=== PATIENT | male | born 1995 | race American Indian/Alaskan Native ===

== ENCOUNTER 2017-06-13 19:27 | Emergency (ER) | payer SELFPAY ==
[2017-06-14] MEDS ORDERED: MOTRIN PO ONE (00:27)
[2017-06-14] MEDS ORDERED: NORCO 5/325 PO ONE (00:27)
--- NOTE | 2017-06-14 00:32 | Emergency Department Report ---
ED ENT HPI - General Chief complaint: Dental/Oral Stated complaint: JAW PAIN Time Seen by Provider: 06/13/17 23:05 Source: patient Mode of arrival: Ambulatory Limitations: No Limitations - History of Present Illness Initial comments: 22-year-old male past medical history none presents with complaint of 2 days of right upper toothache. Patient denies any pus or blood drainage from mouth. Speaking in full sentences. No audible wheezing or stridor no visible trismus or drooling. Patient is able to swallow fluid and food without difficulty. States that it is in the back of his upper row of teeth on right side. Denies any recent trauma to face. Denies any fevers chills earache sore throat nausea or vomiting. Denies any recent dental work. MD complaint: tooth pain Onset/Timin -: days(s) Location: tooth # 1 - Pain and swelling here Severity: moderate Severity scale (0 -10): 5 Quality: aching Consistency: intermittent Associated Symptoms: gum swelling, toothache - Related Data Previous Rx's Medication Instructions Recorded Last Taken Type Famotidine [Pepcid] 20 mg PO BID #20 tablet 03/29/14 Unknown Rx Promethazine [Phenergan] 25 mg PO Q6H PRN #20 tablet 03/29/14 Unknown Rx Brompheniramine/Pseudoephed/Dm 10 ml PO Q12HR #120 ml 04/04/15 Unknown Rx [Bromfed Dm Cough Syrup] Ibuprofen [Motrin 800 MG tab] 800 mg PO Q8HR PRN #30 tablet 04/04/15 Unknown Rx Acetaminophen/Codeine [Tylenol 1 tab PO Q6H PRN #10 tab 06/14/17 Unknown Rx /Codeine # 3 tab] Amoxicillin/Potassium Clav 1 each PO BID #20 tablet 06/14/17 Unknown Rx [Augmentin 875-125 Tablet] Benzocaine [Orajel Liquid 20%] 1 ml MM Q6HR PRN #1 bottle 06/14/17 Unknown Rx Chlorhexidine Mouthwash [Peridex] 15 ml MM BID PRN #1 bottle 06/14/17 Unknown Rx Ibuprofen [Motrin] 600 mg PO Q8H PRN #20 tablet 06/14/17 Unknown Rx Allergies Allergy/AdvReac Type Severity Reaction Status Date / Time No Known Allergies Allergy Unverified 03/29/14 09:01 ED Dental HPI - General Chief complaint: Dental/Oral Stated complaint: JAW PAIN Time Seen by Provider: 06/13/17 23:05 Source: patient Mode of arrival: Ambulatory Limitations: No Limitations - Related Data Previous Rx's Medication Instructions Recorded Last Taken Type Famotidine [Pepcid] 20 mg PO BID #20 tablet 03/29/14 Unknown Rx Promethazine [Phenergan] 25 mg PO Q6H PRN #20 tablet 03/29/14 Unknown Rx Brompheniramine/Pseudoephed/Dm 10 ml PO Q12HR #120 ml 04/04/15 Unknown Rx [Bromfed Dm Cough Syrup] Ibuprofen [Motrin 800 MG tab] 800 mg PO Q8HR PRN #30 tablet 04/04/15 Unknown Rx Acetaminophen/Codeine [Tylenol 1 tab PO Q6H PRN #10 tab 06/14/17 Unknown Rx /Codeine # 3 tab] Amoxicillin/Potassium Clav 1 each PO BID #20 tablet 06/14/17 Unknown Rx [Augmentin 875-125 Tablet] Benzocaine [Orajel Liquid 20%] 1 ml MM Q6HR PRN #1 bottle 06/14/17 Unknown Rx Chlorhexidine Mouthwash [Peridex] 15 ml MM BID PRN #1 bottle 06/14/17 Unknown Rx Ibuprofen [Motrin] 600 mg PO Q8H PRN #20 tablet 06/14/17 Unknown Rx Allergies Allergy/AdvReac Type Severity Reaction Status Date / Time No Known Allergies Allergy Unverified 03/29/14 09:01 ED Review of Systems ROS: Stated complaint: JAW PAIN Other details as noted in HPI Constitutional: denies: chills, fever Eyes: denies: eye pain, eye discharge, vision change ENT: dental pain. denies: ear pain, throat pain Respiratory: denies: cough, shortness of breath, wheezing Cardiovascular: denies: chest pain, palpitations Endocrine: no symptoms reported Gastrointestinal: denies: abdominal pain, nausea, diarrhea Genitourinary: denies: urgency, dysuria Musculoskeletal: denies: back pain, joint swelling, arthralgia Skin: denies: rash, lesions Neurological: denies: headache, weakness, paresthesias Psychiatric: denies: anxiety, depression Hematological/Lymphatic: denies: easy bleeding, easy bruising ED Past Medical Hx - Past Medical History Previous Medical History?: No - Surgical History Past Surgical History?: No - Social History Smoking Status: Never Smoker Substance Use Type: None - Medications Home Medications: Home Medications Medication Instructions Recorded Confirmed Last Taken Type Famotidine [Pepcid] 20 mg PO BID #20 tablet 03/29/14 Unknown Rx Promethazine [Phenergan] 25 mg PO Q6H PRN #20 tablet 03/29/14 Unknown Rx Brompheniramine/Pseudoephed/Dm 10 ml PO Q12HR #120 ml 04/04/15 Unknown Rx [Bromfed Dm Cough Syrup] Ibuprofen [Motrin 800 MG tab] 800 mg PO Q8HR PRN #30 tablet 04/04/15 Unknown Rx Acetaminophen/Codeine [Tylenol 1 tab PO Q6H PRN #10 tab 06/14/17 Unknown Rx /Codeine # 3 tab] Amoxicillin/Potassium Clav 1 each PO BID #20 tablet 06/14/17 Unknown Rx [Augmentin 875-125 Tablet] Benzocaine [Orajel Liquid 20%] 1 ml MM Q6HR PRN #1 bottle 06/14/17 Unknown Rx Chlorhexidine Mouthwash [Peridex] 15 ml MM BID PRN #1 bottle 06/14/17 Unknown Rx Ibuprofen [Motrin] 600 mg PO Q8H PRN #20 tablet 06/14/17 Unknown Rx ED Physical Exam - General Limitations: No Limitations General appearance: alert, in no apparent distress - Head Head exam: Present: atraumatic, normocephalic - Eye Eye exam: Present: normal appearance, PERRL, EOMI - ENT ENT exam: Present: mucous membranes moist - Expanded ENT Exam Expanded Teeth exam: Present: dental tenderness #, gingival enlargement 1 - Dental Tenderness (swelling adjacent to last rear molar) Throat exam: Positive: normal inspection (oropharynx is patent no [employer] no tonsillar exudates no visible abscess) - Neck Neck exam: Present: normal inspection, full ROM - Respiratory Respiratory exam: Present: normal lung sounds bilaterally. Absent: respiratory distress - Cardiovascular Cardiovascular Exam: Present: regular rate, normal rhythm. Absent: systolic murmur, diastolic murmur, rubs, gallop - GI/Abdominal GI/Abdominal exam: Present: soft, normal bowel sounds - Rectal Rectal exam: Present: deferred - Extremities Exam Extremities exam: Present: normal inspection - Back Exam Back exam: Present: normal inspection - Neurological Exam Neurological exam: Present: alert, oriented X3 - Psychiatric Psychiatric exam: Present: normal affect, normal mood - Skin Skin exam: Present: warm, dry, intact, normal color. Absent: rash ED Course Vital Signs 06/13/17 21:02 Temperature 98 F Pulse Rate 73 Blood Pressure 109/69 O2 Sat by Pulse 100 Oximetry ED Medical Decision Making - Medical Decision Making A/P: dental cavities, toothache, dental abscess 1- Motrin when necessary, amoxicillin ten-day course, Orajel when necessary, Peridex mouthwash daily basis, short course codeine when necessary 2- I provided patient with information for multiple dental clinics to follow up and stressed the importance of dental follow-up as he has multiple cavities that require dental fixation or instrumentation 3- no clinical signs of facial abscess, no Juan's angina, no induration or cellulitis of floor of mouth or tongue 4- patient able to tolerate by mouth before discharge 5- no signs of facial infection. Advised patient that if he does not take antibiotics with follow-up with a dentist as soon as possible that a can result in potentially serious or dangerous infection to develop in jaw or face. Patient states that he understood these instructions. I advised patient to return to the ED for any persistent unrelenting nausea or vomiting fever or chills or headaches. Critical care attestation.: If time is entered above; I have spent that time in minutes in the direct care of this critically ill patient, excluding procedure time. ED Disposition Clinical Impression: Dental abscess, Toothache Disposition: TO HOME OR SELFCARE Is pt being admited?: No Does the pt Need Aspirin: No Condition: Stable Instructions: Dental Abscess (ED), Toothache (ED) Additional Instructions: [email or web address] Prescriptions: Acetaminophen/Codeine [Tylenol /Codeine # 3 tab] 1 tab PO Q6H PRN #10 tab PRN Reason: Pain Amoxicillin/Potassium Clav [Augmentin 875-125 Tablet] 1 each PO BID #20 tablet Benzocaine [Orajel Liquid 20%] 1 ml MM Q6HR PRN #1 bottle PRN Reason: Toothache Chlorhexidine Mouthwash [Peridex] 15 ml MM BID PRN #1 bottle PRN Reason: Toothache Ibuprofen [Motrin] 600 mg PO Q8H PRN #20 tablet PRN Reason: Toothache Referrals: [facility] [Outside] - 3-5 Days Forms: Accompanied Note, Work/School Release Form(ED) Time of Disposition: 00:30
[2017-06-14] MEDS ORDERED: AUGMENTIN 875 MG PO ONE (00:36)
[2017-06-14 00:43] VITALS: BP 102/62
== END 2017-06-14 01:09 | disposition home or self-care (01) ==
LOC: ED 19:27
DX: K04.7 Periapical abscess without sinus (principal)
CPT/HCPCS: 99282

== ENCOUNTER 2018-02-25 08:55 | Emergency (ER) | payer SELFPAY ==
[2018-02-25] MEDS ORDERED: TORADOL IV ONE (10:13)
--- NOTE | 2018-02-25 10:19 | Emergency Department Report ---
HPI - General Chief Complaint: Nausea/Vomiting/Diarrhea Time Seen by Provider: 02/25/18 10:07 - HPI HPI: Room 3 The patient is a 22-year-old male presenting with a chief complaint of chest pain. The patient states this morning at 07:00, left-sided chest pain described as sharp in nature. The patient states he felt shortness of breath with the chest pain had to sit down. Patient states the pain has been intermittent and then became heavy. Patient is to nausea but denies vomiting. Patient denies diaphoresis, fever or cough. The patient admits to pleurisy. The patient currently gets his pain a score of 5/10 Location: Left chest Duration: Intermittently times one day Quality: Sharp, heavy Severity: 5/10 Modifying factors: [see above] Context: [see above] Mode of transportation: The patient drove himself to the emergency department and there are no visitors present ED Past Medical Hx - Past Medical History Previous Medical History?: No - Surgical History Past Surgical History?: No - Family History Family history: no significant - Social History Smoking Status: Never Smoker Substance Use Type: None (denies illicit drug use), Alcohol (occasional) - Medications Home Medications: Home Medications Medication Instructions Recorded Confirmed Last Taken Type Famotidine [Pepcid] 20 mg PO BID #20 tablet 03/29/14 Unknown Rx Promethazine [Phenergan] 25 mg PO Q6H PRN #20 tablet 03/29/14 Unknown Rx Brompheniramine/Pseudoephed/Dm 10 ml PO Q12HR #120 ml 04/04/15 Unknown Rx [Bromfed Dm Cough Syrup] Ibuprofen [Motrin 800 MG tab] 800 mg PO Q8HR PRN #30 tablet 04/04/15 Unknown Rx Acetaminophen/Codeine [Tylenol 1 tab PO Q6H PRN #10 tab 06/14/17 Unknown Rx /Codeine # 3 tab] Amoxicillin/Potassium Clav 1 each PO BID #20 tablet 06/14/17 Unknown Rx [Augmentin 875-125 Tablet] Benzocaine [Orajel Liquid 20%] 1 ml MM Q6HR PRN #1 bottle 06/14/17 Unknown Rx Chlorhexidine Mouthwash [Peridex] 15 ml MM BID PRN #1 bottle 06/14/17 Unknown Rx Ibuprofen [Motrin] 600 mg PO Q8H PRN #20 tablet 06/14/17 Unknown Rx Sulfamethoxazole/Trimethoprim 1 each PO BID #14 tablet 11/30/17 Unknown Rx [Bactrim DS TAB] Ibuprofen [Motrin 800 MG tab] 800 mg PO Q8HR PRN #20 tablet 02/25/18 Unknown Rx traMADol [Ultram] 50 mg PO Q6HR PRN #10 tablet 02/25/18 Unknown Rx ED Review of Systems ROS: Stated complaint: CHEST PAIN/SOB Other details as noted in HPI Constitutional: denies: diaphoresis, fever Eyes: denies: eye pain ENT: denies: throat pain Respiratory: shortness of breath Cardiovascular: chest pain Endocrine: no symptoms reported Gastrointestinal: nausea. denies: vomiting Genitourinary: denies: dysuria Musculoskeletal: denies: back pain Neurological: denies: headache Physical Exam - Physical Exam Vital Signs: Vital Signs 02/25/18 09:16 Temperature 97.4 F L Pulse Rate 65 Respiratory 18 Rate Blood Pressure 126/66 O2 Sat by Pulse 100 Oximetry Physical Exam: GENERAL: The patient is well-developed well-nourished male lying on stretcher using her cell phone appear to be in acute distress. [] HEENT: Normocephalic. Atraumatic. Extraocular motions are intact. Patient has moist mucous membranes. NECK: Supple. Trachea midline CHEST/LUNGS: Clear to auscultation. There is no respiratory distress noted. HEART/CARDIOVASCULAR: Regular. There is no tachycardia. There is no gallop rub or murmur. ABDOMEN: Abdomen is soft, nontender. Patient has normal bowel sounds. There is no abdominal distention. SKIN: There is no rash. There is no edema. There is no diaphoresis. NEURO: The patient is awake, alert, and oriented. The patient is cooperative. The patient has normal speech MUSCULOSKELETAL: There is no evidence of acute injury. ED Course Vital Signs 02/25/18 09:16 Temperature 97.4 F L Pulse Rate 65 Respiratory 18 Rate Blood Pressure 126/66 O2 Sat by Pulse 100 Oximetry - Reevaluation(s) Reevaluation #1: 02/25/18 11:45 Patient is sleeping comfortably. Patient awakened and results discussed. Strong warnings given - Consultations Consultation #1: 02/25/18 10:23 EKG sent to and discussed with Dr. Blood- early repolarization. ED Medical Decision Making - Lab Data Result diagrams: 02/25/18 10:17 02/25/18 10:17 Laboratory Tests 02/25/18 02/25/18 02/25/18 10:17 10:17 10:17 WBC 5.9 RBC 4.84 Hgb 14.4 Hct 42.4 MCV 88 MCH 30 MCHC 34 RDW 13.2 Plt Count 305 Lymph % (Auto) 32.0 [place] % (Auto) 8.1 H Eos % (Auto) 8.7 H Baso % (Auto) 0.4 Lymph # 1.9 [place] # 0.5 Eos # 0.5 H Baso # 0.0 Seg Neutrophils % 50.8 Seg Neutrophils # 3.0 D-Dimer < 135 Sodium 143 Potassium 4.1 Chloride 104.6 Carbon Dioxide 29 Anion Gap 14 BUN 10 Creatinine 0.9 Estimated GFR > 60 BUN/Creatinine Ratio 11 Glucose 75 Calcium 9.0 Total Creatine Kinase 114 CK-MB (CK-2) 1.7 CK-MB (CK-2) Rel Index 1.4 Troponin T < 0.010 NT-Pro-B Natriuret Pep 27.69 - EKG Data -: EKG Interpreted by Me EKG shows normal: sinus rhythm Rate: normal - EKG Data When compared to previous EKG there are: previous EKG unavailable Interpretation: nonspecific ST-T wave geovany - Radiology Data Radiology results: report reviewed (chest x-ray), image reviewed (chest x-ray) interpreted by me: Chest x-ray-no focal infiltrate, no pneumothorax Findings [facility] [address] [place] [address] XRay Report Signed Patient: PETRA BURCH MR#: [id number] : 1995 Acct:[id number] Age/Sex: 22 / M ADM Date: 02/25/18 Loc: ED Attending Dr: Ordering Physician: PASCALE MONTANA MD Date of Service: 02/25/18 Procedure(s): XR chest routine 2V Accession Number(s): [id number] cc: PASCALE MONTANA MD Fluoro Time In Minutes: ROUTINE CHEST, TWO VIEWS: HISTORY: chest pain. The trachea, heart, mediastinal contour, lung qiu and bony thorax are unremarkable. IMPRESSION: Unremarkable chest x-ray. Transcribed By: TTR Dictated By: GEORGI CUIREL JR, MD Electronically Authenticated By: GEORGI CURIEL JR, MD Signed Date/Time: 02/25/18 1132 DD/ 1131 TD/TT: 02/25/181131 - Differential Diagnosis PE, ACS, pleurisy, pericarditis, GERD, anxiety Critical care attestation.: If time is entered above; I have spent that time in minutes in the direct care of this critically ill patient, excluding procedure time. ED Disposition Clinical Impression: Atypical chest pain Disposition: - TO HOME OR SELFCARE Is pt being admited?: No Does the pt Need Aspirin: No Condition: Stable Instructions: Chest Pain (ED), Costochondritis (ED) Additional Instructions: Return to the emergency department immediately should you develop worsening symptoms, fever, inability to tolerate food or liquid or any other concerns. Prescriptions: Ibuprofen [Motrin 800 MG tab] 800 mg PO Q8HR PRN #20 tablet PRN Reason: Pain, Moderate (4-6) traMADol [Ultram] 50 mg PO Q6HR PRN #10 tablet PRN Reason: Pain Referrals: PRIMARY CARE, [Primary Care Provider] - 3-5 Days [facility] [Outside] - 3-5 Days Time of Disposition: 11:45
[2018-02-25 10:32] LABS: Basophils % (Auto) 0.4 % (0.0-1.8); Eosinophils # (Auto) 0.5 K/mm3 (0.0-0.4); Eosinophils % (Auto) 8.7 % (0.0-4.3); Hematocrit 42.4 % (35.5-45.6); Hemoglobin 14.4 gm/dl (11.8-15.2); Lymphocytes # (Auto) 1.9 K/mm3 (1.2-5.4); Mean Corpuscular HGB Conc 34 % (32-34); Mean Corpuscular Volume 88 fl (84-94); Monocytes # (Auto) 0.5 K/mm3 (0.0-0.8); Monocytes % (Auto) 8.1 % (0.0-7.3); Platelet Count 305 K/mm3 (140-440); Red Blood Count 4.84 M/mm3 (3.65-5.03); Red Cell Distribution Width 13.2 % (13.2-15.2)
[2018-02-25 10:57] LABS: Creatine Kinase MB 1.7 ng/mL (0.0-4.0)
[2018-02-25 10:58] LABS: BUN/Creatinine Ratio 11; Blood Urea Nitrogen 10 mg/dL (9-20); Hemolysis Index 8
--- NOTE | 2018-02-25 11:35 | XRay Report ---
ROUTINE CHEST, TWO VIEWS: HISTORY: chest pain. The trachea, heart, mediastinal contour, lung qiu and bony thorax are unremarkable. IMPRESSION: Unremarkable chest x-ray.
[2018-02-25 12:03] VITALS: BP 106/68
== END 2018-02-25 12:05 | disposition home or self-care (01) ==
LOC: ED 08:55
DX: R07.89 Other chest pain (principal)
CPT/HCPCS: 36415; 71046; 80048; 82550; 82553; 83880; 84484; 85025; 85379; 93005; 93010; 96374; 99284; J1885

== ENCOUNTER 2018-05-14 09:51 | Emergency (ER) | payer SELFPAY ==
--- NOTE | 2018-05-14 10:42 | Emergency Department Report ---
Minor Respiratory - HPI Stated Complaint: HEADACHE/SORE THROAT/PAIN Time Seen by Provider: 05/14/18 10:36 Duration: 5 Days Pain Location: Throat Severity: moderate Minor Respiratory: Yes Sore Throat, Yes Able to Tolerate Fluids, Yes Cough (productive of clear phlegm), No Rhinorrhea, No Ear Pain, No Sick Contacts, No Hemoptysis, No Chest Pain, No Shortness of Breath, No Fever ED Review of Systems ROS: Stated complaint: HEADACHE/SORE THROAT/PAIN Other details as noted in HPI Comment: All other systems reviewed and negative ED Past Medical Hx - Past Medical History Previous Medical History?: No - Surgical History Past Surgical History?: No - Social History Smoking Status: Current Some Day Smoker Substance Use Type: None - Medications Home Medications: Home Medications Medication Instructions Recorded Confirmed Last Taken Type Famotidine [Pepcid] 20 mg PO BID #20 tablet 03/29/14 Unknown Rx Promethazine [Phenergan] 25 mg PO Q6H PRN #20 tablet 03/29/14 Unknown Rx Brompheniramine/Pseudoephed/Dm 10 ml PO Q12HR #120 ml 04/04/15 Unknown Rx [Bromfed Dm Cough Syrup] Ibuprofen [Motrin 800 MG tab] 800 mg PO Q8HR PRN #30 tablet 04/04/15 Unknown Rx Acetaminophen/Codeine [Tylenol 1 tab PO Q6H PRN #10 tab 06/14/17 Unknown Rx /Codeine # 3 tab] Amoxicillin/Potassium Clav 1 each PO BID #20 tablet 06/14/17 Unknown Rx [Augmentin 875-125 Tablet] Benzocaine [Orajel Liquid 20%] 1 ml MM Q6HR PRN #1 bottle 06/14/17 Unknown Rx Chlorhexidine Mouthwash [Peridex] 15 ml MM BID PRN #1 bottle 06/14/17 Unknown Rx Ibuprofen [Motrin] 600 mg PO Q8H PRN #20 tablet 06/14/17 Unknown Rx Sulfamethoxazole/Trimethoprim 1 each PO BID #14 tablet 11/30/17 Unknown Rx [Bactrim DS TAB] Ibuprofen [Motrin 800 MG tab] 800 mg PO Q8HR PRN #20 tablet 02/25/18 Unknown Rx traMADol [Ultram] 50 mg PO Q6HR PRN #10 tablet 02/25/18 Unknown Rx Azithromycin [Zithromax Z-GRAYSON] 250 mg PO DAILY #6 tablet 05/14/18 Unknown Rx Ibuprofen [Ibu] 600 mg PO Q6HR PRN #20 tablet 05/14/18 Unknown Rx guaiFENesin/CODEINE [Robitussin AC] 5 ml PO Q6HR PRN #100 oral.liqd 05/14/18 Unknown Rx predniSONE [Deltasone] 20 mg PO QDAY #5 tab 05/14/18 Unknown Rx Minor Respiratory Exam - Exam General: Vital signs noted. No distress. Alert and acting appropriately. HEENT: Yes Pharyngeal Erythema, Yes Moist Mucous Membranes, No Pharyngeal Exudates, No Rhinorrhea, No Conjuctival Injection, No Frontal Tenderness, No Maxillary Tenderness Ear: Neither TM Bulge, Neither TM Erythema, Neither EAC Pain, Neither EAC Discharge Neck: Yes Supple, No Adenopathy Lungs: Yes Good Air Exchange, No Wheezes, No Ronchi, No Stridor, No Cough, No Labored Respirations, No Retractions, No Use of Accessory Muscles, No Other Abnormal Lung Sounds Heart: Yes Regular, No Murmur Abdomen: Yes Normal Bowel Sounds, No Tenderness, No Peritoneal Signs Skin: No Rash, No Edema Neurologic: Alert and oriented, no deficits. Musculoskeletal: Unremarkable. ED Course Vital Signs 05/14/18 10:02 Temperature 97.4 F L Pulse Rate 79 Blood Pressure 103/64 Critical care attestation.: If time is entered above; I have spent that time in minutes in the direct care of this critically ill patient, excluding procedure time. ED Disposition Clinical Impression: Pharyngitis Qualifiers: Pharyngitis/tonsillitis etiology: unspecified etiology Qualified Code(s): J02.9 - Acute pharyngitis, unspecified Disposition: DC-01 TO HOME OR SELFCARE Is pt being admited?: No Does the pt Need Aspirin: No Condition: Stable Instructions: Pharyngitis (ED) Time of Disposition: 10:41
== END 2018-05-14 11:11 | disposition home or self-care (01) ==
LOC: ED 09:51
CPT/HCPCS: 99282

== ENCOUNTER 2018-09-22 14:52 | Emergency (ER) | payer SELFPAY ==
[2018-09-22 15:26] VITALS: BP 94/54
--- NOTE | 2018-09-22 15:26 | Event Note ---
ED Screening Note Date of service: 09/22/18 Time: 15:24 ED Screening Note: 23 y/o male comes in for dysuria and hematuria since last night. Denies any penile discharge. No testicular pain. This initial assessment/diagnostic orders/clinical plan/treatment(s) is/are subject to change based on patients health status, clinical progression and re- assessment by fellow clinical providers in the ED. Further treatment and workup at subsequent clinical providers discretion. Patient/guardian urged not to elope from the ED as their condition may be serious if not clinically assessed and managed. Initial orders include:
[2018-09-22 16:01] LABS: Bilirubin,Urine NEG (Negative); Blood,Urine NEG (Negative); Color,Urine Yellow (Yellow); Mucus,Urine 1+ /HPF; Protein,Urine <15 mg/dL mg/dL (Negative); Urobilinogen,Urine < 2.0 mg/dL (<2.0)
[2018-09-22] MEDS ORDERED: FLAGYL PO ONE (16:33)
[2018-09-22] MEDS ORDERED: ZITHROMAX PO ONE (16:34)
[2018-09-22] MEDS ORDERED: XYLOCAINE 1% MPF 5 mL INFILTRATI ONE (16:34)
[2018-09-22] MEDS ORDERED: ROCEPHIN IM ONE (16:34)
[2018-09-22] MEDS ORDERED: ZOFRAN ODT PO ONE (16:36)
--- NOTE | 2018-09-22 16:37 | Emergency Department Report ---
ED Dysuria HPI - HPI Chief Complaint: Urogenital-Male Stated Complaint: URIATING BLOOD Time Seen by Provider: 09/22/18 15:23 Location of Discomfort: Urethra (dysuria) Severity: Moderate Symptoms: Dysuria: Yes, Frequency: No, Suprapubic Pain: No, Flank Pain: No, Fever: No, Hematuria: Yes, Abdominal Pain: No, Previous UTI's: No Other History: 23 YO COMES TO ER WITH HEMATURIA AND DYSURIA. RECENTLY TOLD HE HAD STI BUT DID NOT TAKE MEDS INSTRUCTED. NO LESIONS. NO TESTICULAR PAIN ED Review of Systems ROS: Stated complaint: URIATING BLOOD Other details as noted in HPI Comment: All other systems reviewed and negative ED Past Medical Hx - Past Medical History Previous Medical History?: Yes Additional medical history: STI - Surgical History Past Surgical History?: No - Family History Family history: no significant - Social History Smoking Status: Never Smoker Substance Use Type: Alcohol - Medications Home Medications: Home Medications Medication Instructions Recorded Confirmed Last Taken Type Famotidine [Pepcid] 20 mg PO BID #20 tablet 03/29/14 Unknown Rx Promethazine [Phenergan] 25 mg PO Q6H PRN #20 tablet 03/29/14 Unknown Rx Brompheniramine/Pseudoephed/Dm 10 ml PO Q12HR #120 ml 04/04/15 Unknown Rx [Bromfed Dm Cough Syrup] Ibuprofen [Motrin 800 MG tab] 800 mg PO Q8HR PRN #30 tablet 04/04/15 Unknown Rx Acetaminophen/Codeine [Tylenol 1 tab PO Q6H PRN #10 tab 06/14/17 Unknown Rx /Codeine # 3 tab] Amoxicillin/Potassium Clav 1 each PO BID #20 tablet 06/14/17 Unknown Rx [Augmentin 875-125 Tablet] Benzocaine [Orajel Liquid 20%] 1 ml MM Q6HR PRN #1 bottle 06/14/17 Unknown Rx Chlorhexidine Mouthwash [Peridex] 15 ml MM BID PRN #1 bottle 06/14/17 Unknown Rx Ibuprofen [Motrin] 600 mg PO Q8H PRN #20 tablet 06/14/17 Unknown Rx Sulfamethoxazole/Trimethoprim 1 each PO BID #14 tablet 11/30/17 Unknown Rx [Bactrim DS TAB] Ibuprofen [Motrin 800 MG tab] 800 mg PO Q8HR PRN #20 tablet 02/25/18 Unknown Rx traMADol [Ultram] 50 mg PO Q6HR PRN #10 tablet 02/25/18 Unknown Rx Azithromycin [Zithromax Z-GRAYSON] 250 mg PO DAILY #6 tablet 05/14/18 Unknown Rx Ibuprofen [Ibu] 600 mg PO Q6HR PRN #20 tablet 05/14/18 Unknown Rx guaiFENesin/CODEINE [Robitussin AC] 5 ml PO Q6HR PRN #100 oral.liqd 05/14/18 Unknown Rx predniSONE [Deltasone] 20 mg PO QDAY #5 tab 05/14/18 Unknown Rx Dysuria Exam - Exam General: Vital signs noted. No distress. Alert and acting appropriately. Exam: Yes Moist Mucous Membranes, No CVA Tenderness, No Abdominal Tenderness, No Rigidity or Guarding Labs: Lab Results 09/22/18 Range/Units 15:30 Urine Color Yellow (Yellow) Urine Turbidity Clear (Clear) Urine pH 7.0 (5.0-7.0) Ur Specific [place] 1.024 (1.003-1.030) Urine Protein <15 mg/dl (Negative) mg/dL Urine Glucose (UA) Neg (Negative) mg/dL Urine Ketones Neg (Negative) mg/dL Urine Blood Neg (Negative) Urine Nitrite Neg (Negative) Urine Bilirubin Neg (Negative) Urine Urobilinogen < 2.0 (<2.0) mg/dL Ur Leukocyte Esterase Neg (Negative) Urine WBC (Auto) 6.0 (0.0-6.0) /HPF Urine RBC (Auto) 9.0 (0.0-6.0) /HPF U Epithel Cells (Auto) < 1.0 (0-13.0) /HPF Urine Mucus 1+ /HPF ED Course Vital Signs 09/22/18 15:23 Temperature 97.9 F Pulse Rate 91 H Blood Pressure 94/54 O2 Sat by Pulse 99 Oximetry ED Medical Decision Making - Medical Decision Making WAS RECENTLY TOLD HE HAD STI DID NOT GET RX FILLED HERE WITH HEMATURIA AND DYSURIA NO TESTICULAR PAIN OR LESIONS EMPIRIC TREATMENT PT EDUCATED ON STI PREVENTION Vital Signs 09/22/18 15:23 Temperature 97.9 F Pulse Rate 91 H Blood Pressure 94/54 O2 Sat by Pulse 99 Oximetry Lab Results 09/22/18 Range/Units 15:30 Urine Color Yellow (Yellow) Urine Turbidity Clear (Clear) Urine pH 7.0 (5.0-7.0) Ur Specific [place] 1.024 (1.003-1.030) Urine Protein <15 mg/dl (Negative) mg/dL Urine Glucose (UA) Neg (Negative) mg/dL Urine Ketones Neg (Negative) mg/dL Urine Blood Neg (Negative) Urine Nitrite Neg (Negative) Urine Bilirubin Neg (Negative) Urine Urobilinogen < 2.0 (<2.0) mg/dL Ur Leukocyte Esterase Neg (Negative) Urine WBC (Auto) 6.0 (0.0-6.0) /HPF Urine RBC (Auto) 9.0 (0.0-6.0) /HPF U Epithel Cells (Auto) < 1.0 (0-13.0) /HPF Urine Mucus 1+ /HPF - Differential Diagnosis UTI/STI Critical care attestation.: If time is entered above; I have spent that time in minutes in the direct care of this critically ill patient, excluding procedure time. ED Disposition Clinical Impression: Dysuria, Concern about STD in male without diagnosis Disposition: DC-01 TO HOME OR SELFCARE Is pt being admited?: No Does the pt Need Aspirin: No Condition: Stable Instructions: Safe Sex (ED) Referrals: CHAYO NAVA MD [Primary Care Provider] - 3-5 Days Time of Disposition: 16:35
== END 2018-09-22 17:23 | disposition home or self-care (01) ==
LOC: ED 14:52
DX: R30.0 Dysuria (principal); Z20.2 Contact with and (suspected) exposure to infections with a predominantly sexual mode of transmission
CPT/HCPCS: 81001; 96372; 99283; J0696; Q0162

== ENCOUNTER 2019-12-13 20:43 | Emergency (ER) | payer SELFPAY ==
[2019-12-13 22:31] VITALS: BP 110/63
[2019-12-13 22:45] LABS: Bilirubin,Urine NEG (Negative); Blood,Urine NEG (Negative); Color,Urine Yellow (Yellow); Mucus,Urine FEW /HPF
[2019-12-13 22:46] LABS: WBC,Urine > 182.0 /HPF (0.0-6.0)
== END 2019-12-14 01:25 | disposition home or self-care (01) ==
LOC: ED 20:43
DX: R30.9 Painful micturition, unspecified (principal)
CPT/HCPCS: 81001; 99283

== ENCOUNTER 2019-12-16 05:22 | Emergency (ER) | payer SELFPAY ==
[2019-12-16 05:46] VITALS: BP 119/74
[2019-12-16] MEDS ORDERED: LIDOCAINE-MPF (1%) 10 MG/1 ML VIAL 5 ML INFILTRATI ONE (08:33)
[2019-12-16] MEDS ORDERED: AZITHROMYCIN 250 MG TAB PO ONE (08:33)
[2019-12-16] MEDS ORDERED: metroNIDAZOLE 500 MG TAB PO ONE (08:34)
--- NOTE | 2019-12-16 08:37 | Emergency Department Report ---
ED Male HPI - General Chief complaint: Urogenital-Male Stated complaint: POSS STD Time Seen by Provider: 12/16/19 08:22 Source: patient Mode of arrival: Ambulatory Limitations: No Limitations - History of Present Illness Initial comments: This is a pleasant 24-year-old male presents emerged department chief complaint of penile discharge and dysuria. Patient denies any testicular pain, abdominal pain, fever, chills, night sweats, headache, dizziness, blurry vision, nausea, vomiting, diarrhea, chest pain, shortness of breath or any other associated symptoms. He denies any known past medical history, current medication use or known allergies to medications. He is concerned he may have an STD. He was recently seen in the emergency department and given antibiotics and Pyridium but reports his symptoms are not improving. - Related Data Previous Rx's Medication Instructions Recorded Last Taken Type Famotidine [Pepcid] 20 mg PO BID #20 tablet 03/29/14 Unknown Rx Promethazine [Phenergan] 25 mg PO Q6H PRN #20 tablet 03/29/14 Unknown Rx Brompheniramine/Pseudoephed/Dm 10 ml PO Q12HR #120 ml 04/04/15 Unknown Rx [Bromfed Dm Cough Syrup] Ibuprofen [Motrin 800 MG tab] 800 mg PO Q8HR PRN #30 tablet 04/04/15 Unknown Rx Acetaminophen/Codeine [Tylenol 1 tab PO Q6H PRN #10 tab 06/14/17 Unknown Rx /Codeine # 3 tab] Amoxicillin/Potassium Clav 1 each PO BID #20 tablet 06/14/17 Unknown Rx [Augmentin 875-125 Tablet] Benzocaine [Orajel Liquid 20%] 1 ml MM Q6HR PRN #1 bottle 06/14/17 Unknown Rx Chlorhexidine Mouthwash [Peridex] 15 ml MM BID PRN #1 bottle 06/14/17 Unknown Rx Ibuprofen [Motrin] 600 mg PO Q8H PRN #20 tablet 06/14/17 Unknown Rx Sulfamethoxazole/Trimethoprim 1 each PO BID #14 tablet 11/30/17 Unknown Rx [Bactrim DS TAB] Ibuprofen [Motrin 800 MG tab] 800 mg PO Q8HR PRN #20 tablet 02/25/18 Unknown Rx traMADoL [Ultram] 50 mg PO Q6HR PRN #10 tablet 02/25/18 Unknown Rx Azithromycin [Zithromax Z-GRAYSON] 250 mg PO DAILY #6 tablet 05/14/18 Unknown Rx Ibuprofen [Ibu] 600 mg PO Q6HR PRN #20 tablet 05/14/18 Unknown Rx guaiFENesin/CODEINE [Robitussin AC] 5 ml PO Q6HR PRN #100 oral.liqd 05/14/18 Unknown Rx predniSONE [Deltasone] 20 mg PO QDAY #5 tab 05/14/18 Unknown Rx Allergies Allergy/AdvReac Type Severity Reaction Status Date / Time No Known Allergies Allergy Verified 02/25/18 09:19 ED Review of Systems ROS: Stated complaint: POSS STD Other details as noted in HPI Constitutional: denies: chills, fever Eyes: denies: eye pain, eye discharge, vision change ENT: denies: ear pain, throat pain Respiratory: denies: cough, shortness of breath, wheezing Cardiovascular: denies: chest pain, palpitations Endocrine: no symptoms reported Gastrointestinal: denies: abdominal pain, nausea, diarrhea Genitourinary: as per HPI, dysuria, discharge. denies: urgency Musculoskeletal: denies: back pain, joint swelling, arthralgia Skin: denies: rash, lesions Neurological: denies: headache, weakness, paresthesias Psychiatric: denies: anxiety, depression Hematological/Lymphatic: denies: easy bleeding, easy bruising ED Past Medical Hx - Past Medical History Previous Medical History?: No Additional medical history: STI - Surgical History Past Surgical History?: No - Social History Smoking Status: Current Every Day Smoker Substance Use Type: Alcohol, Marijuana - Medications Home Medications: Home Medications Medication Instructions Recorded Confirmed Last Taken Type Famotidine [Pepcid] 20 mg PO BID #20 tablet 03/29/14 Unknown Rx Promethazine [Phenergan] 25 mg PO Q6H PRN #20 tablet 03/29/14 Unknown Rx Brompheniramine/Pseudoephed/Dm 10 ml PO Q12HR #120 ml 04/04/15 Unknown Rx [Bromfed Dm Cough Syrup] Ibuprofen [Motrin 800 MG tab] 800 mg PO Q8HR PRN #30 tablet 04/04/15 Unknown Rx Acetaminophen/Codeine [Tylenol 1 tab PO Q6H PRN #10 tab 06/14/17 Unknown Rx /Codeine # 3 tab] Amoxicillin/Potassium Clav 1 each PO BID #20 tablet 06/14/17 Unknown Rx [Augmentin 875-125 Tablet] Benzocaine [Orajel Liquid 20%] 1 ml MM Q6HR PRN #1 bottle 06/14/17 Unknown Rx Chlorhexidine Mouthwash [Peridex] 15 ml MM BID PRN #1 bottle 06/14/17 Unknown Rx Ibuprofen [Motrin] 600 mg PO Q8H PRN #20 tablet 06/14/17 Unknown Rx Sulfamethoxazole/Trimethoprim 1 each PO BID #14 tablet 11/30/17 Unknown Rx [Bactrim DS TAB] Ibuprofen [Motrin 800 MG tab] 800 mg PO Q8HR PRN #20 tablet 02/25/18 Unknown Rx traMADoL [Ultram] 50 mg PO Q6HR PRN #10 tablet 02/25/18 Unknown Rx Azithromycin [Zithromax Z-GRAYSON] 250 mg PO DAILY #6 tablet 05/14/18 Unknown Rx Ibuprofen [Ibu] 600 mg PO Q6HR PRN #20 tablet 05/14/18 Unknown Rx guaiFENesin/CODEINE [Robitussin AC] 5 ml PO Q6HR PRN #100 oral.liqd 05/14/18 Unknown Rx predniSONE [Deltasone] 20 mg PO QDAY #5 tab 05/14/18 Unknown Rx ED Physical Exam - General Limitations: No Limitations General appearance: alert, in no apparent distress - Head Head exam: Present: atraumatic, normocephalic - Eye Eye exam: Present: normal appearance - ENT ENT exam: Present: normal exam, normal orophraynx, mucous membranes moist - Neck Neck exam: Present: normal inspection, full ROM. Absent: tenderness, meningismus - Respiratory Respiratory exam: Present: normal lung sounds bilaterally. Absent: respiratory distress, wheezes, rales, rhonchi, stridor - Cardiovascular Cardiovascular Exam: Present: regular rate, normal rhythm. Absent: systolic murmur, diastolic murmur, rubs, gallop - GI/Abdominal GI/Abdominal exam: Present: soft, normal bowel sounds. Absent: tenderness, guarding, rebound, rigid - Rectal Rectal exam: Present: deferred - exam: Present: other (Patient deferred) - Extremities Exam Extremities exam: Present: normal inspection, full ROM. Absent: tenderness, calf tenderness - Back Exam Back exam: Present: normal inspection. Absent: CVA tenderness (R), CVA tenderness (L) - Neurological Exam Neurological exam: Present: alert, oriented X3 - Psychiatric Psychiatric exam: Present: normal affect, normal mood - Skin Skin exam: Present: warm, dry, intact, normal color. Absent: rash ED Course Vital Signs 12/16/19 05:27 Temperature 97.7 F Pulse Rate 81 Respiratory 16 Rate Blood Pressure 119/74 O2 Sat by Pulse 97 Oximetry ED Medical Decision Making - Medical Decision Making Patient will be empirically treated for urethritis with Rocephin 250 IM, azithromycin 1 g p.o. and Flagyl 2 g p.o. Patient was instructed that he needs to abstain from any sexual contact for at least 1 week and that any other partners need to be tested and treated prior to engaging in sexual contact to avoid any reexposure. Patient was also educated that we could not test for STDs in the emergency department and that he need to follow-up with the health department to get further testing for gonorrhea, chlamydia, trichomonas, hepatitis, syphilis, HIV or any other possible STD exposures. He understood that if he develops any changing or worsening symptoms he need to return to the emerge department. He verbalized understanding of the diagnosis, treatment plan and follow-up instructions and all of his questions were answered. - Differential Diagnosis UTI, STD, kidney stone Critical care attestation.: If time is entered above; I have spent that time in minutes in the direct care of this critically ill patient, excluding procedure time. ED Disposition Clinical Impression: Urethritis Disposition: DC-01 TO HOME OR SELFCARE Is pt being admited?: No Condition: Stable Instructions: Nonspecific Urethritis in Men (ED) Referrals: PRIMARY CAREMD [Primary Care Provider] - 3-5 Days [facility] [Outside] - 3-5 Days Forms: STI Treatment and Prevention Time of Disposition: 08:37
== END 2019-12-16 08:56 | disposition home or self-care (01) ==
LOC: ED 05:22
DX: N34.2 Other urethritis (principal); F17.200 Nicotine dependence, unspecified, uncomplicated; F12.10 Cannabis abuse, uncomplicated; Z79.899 Other long term (current) drug therapy
CPT/HCPCS: 96372; 99282; J0696

== ENCOUNTER 2020-02-16 02:05 | Emergency (ER) | payer SELFPAY | END 2020-02-16 02:10 | disposition left against medical advice (07) | LOC: ED 02:05 | DX: Z00.8 Encounter for other general examination (principal); Z53.21 Procedure and treatment not carried out due to patient leaving prior to being seen by health care provider ==

== ENCOUNTER 2020-02-18 11:33 | Emergency (ER) | payer SELFPAY ==
[2020-02-18 11:39] VITALS: BP 116/75
--- NOTE | 2020-02-18 11:52 | Emergency Department Report ---
Chief Complaint: Urogenital-Male Stated Complaint: PENIS BURNING Time Seen by Provider: 02/18/20 11:46 - HPI History of Present Illness: pt is a 24 yo male who presents to the ED with c/o yellow penile discharge that began a week ago. he has associated dysuria. he denies any pain or swelling in the testicles, abd pain, back pain, hematuria, urinary retention, fever, vomiting, diarrhea. He states he is sexually active without protection. He denies any medication allergies Vitals are stable On exam: Non toxic appearing, no acute distress atraumatic, normocephalic normal appearance of the eyes, EOMI, no periorbital edema or ecchymosis moist mucus membranes No respiratory distress, no accessory muscle use : Fabrication Supervisor Laci, tech, normal testicular lie, no testicular tenderness palpation or edema, no scrotal edema, no tenderness palpation or edema of the epididymal appendages bilaterally, normal cremasteric reflex, no lesions or blisters A&O x4, no focal neuro deficit skin is warm, dry, intact Patient is presenting with symptoms most consistent with an STD He has no clinical signs of orchitis or epididymitis at this time No clinical signs of testicular torsion Patient be referred to the health department in a clinic for full STD panel This hospital policy does not treat uncomplicated male STDs Patient given the appropriate resources discussed very strict return precautions Medical screen examination performed there is no threat to life or limb at this time - Exam Vital Signs: Vital Signs 02/18/20 11:37 Temperature 97.9 F Pulse Rate 89 Respiratory 14 Rate Blood Pressure 116/75 [Right] O2 Sat by Pulse 94 Oximetry MSE screening note: Focused history and physical exam performed. Due to findings the following was ordered: ED Disposition for MSE Clinical Impression: Concern about STD in male without diagnosis Disposition: Z-07 MED SCREENING EXAM-LEFT Is pt being admited?: No Does the pt Need Aspirin: No Condition: Stable Instructions: Safe Sex Additional Instructions: please follow up with the health department or a clinic for full STD panel. have any partner tested and treated as well. return to the emergency room for any new or worsening symptoms. walk in clinic: [facility] Address: [address] [place] [id number] Referrals: [facility] [Outside] - 2-3 Days Time of Disposition: 11:50 Print Language: KHMER
== END 2020-02-18 12:09 | disposition left against medical advice (07) ==
LOC: ED 11:33
DX: R30.0 Dysuria (principal); R36.9 Urethral discharge, unspecified; Z20.2 Contact with and (suspected) exposure to infections with a predominantly sexual mode of transmission; Z53.21 Procedure and treatment not carried out due to patient leaving prior to being seen by health care provider

== ENCOUNTER 2021-10-31 07:53 | Emergency (ER) | payer SELFPAY ==
[2021-10-31] MEDS ORDERED: LIDOCAINE-MPF (1%) 10 MG/1 ML VIAL 5 ML INFILTRATI ONE (10:49)
[2021-10-31] MEDS ORDERED: AZITHROMYCIN 250 MG TAB PO ONE (10:49)
--- NOTE | 2021-10-31 11:10 | Emergency Department Report ---
ED Male HPI - General Chief complaint: Urogenital-Male Stated complaint: BURN WHEN URINES Time Seen by Provider: 10/31/21 10:48 Source: patient Mode of arrival: Ambulatory Limitations: No Limitations - History of Present Illness Initial comments: 26-year-old black male with no past medical history presents to the emergency department for evaluation of 1 day history of penile discharge and burning with urination. He states that he has been having unprotected sex but with the same partner. He states that he is unaware if his partner is having symptoms or not. He denies abdominal pain, fever, nausea, and vomiting. MD Complaint: penile discharge, dysuria -: Sudden, This morning Severity scale (0 -10): 0 discharge, dysuria. denies: swelling, mass, rash, urinary retention, blood in urine, fever, nausea/vomiting, incontinence - Related Data Sexually active: Yes Previous Rx's Medication Instructions Recorded Last Taken Type Famotidine [Pepcid] 20 mg PO BID #20 tablet 03/29/14 Unknown Rx Promethazine [Phenergan] 25 mg PO Q6H PRN #20 tablet 03/29/14 Unknown Rx Brompheniramine/Pseudoephed/Dm 10 ml PO Q12HR #120 ml 04/04/15 Unknown Rx [Bromfed Dm Cough Syrup] Ibuprofen [Motrin 800 MG tab] 800 mg PO Q8HR PRN #30 tablet 04/04/15 Unknown Rx Acetaminophen/Codeine [Tylenol 1 tab PO Q6H PRN #10 tab 06/14/17 Unknown Rx /Codeine # 3 tab] Amoxicillin/Potassium Clav 1 each PO BID #20 tablet 06/14/17 Unknown Rx [Augmentin 875-125 Tablet] Benzocaine [Orajel Liquid 20%] 1 ml MM Q6HR PRN #1 bottle 06/14/17 Unknown Rx Chlorhexidine Mouthwash [Peridex] 15 ml MM BID PRN #1 bottle 06/14/17 Unknown Rx Ibuprofen [Motrin] 600 mg PO Q8H PRN #20 tablet 06/14/17 Unknown Rx Sulfamethoxazole/Trimethoprim 1 each PO BID #14 tablet 11/30/17 Unknown Rx [Bactrim DS TAB] Ibuprofen [Motrin 800 MG tab] 800 mg PO Q8HR PRN #20 tablet 02/25/18 Unknown Rx traMADoL [Ultram] 50 mg PO Q6HR PRN #10 tablet 02/25/18 Unknown Rx Azithromycin [Zithromax Z-GRAYSON] 250 mg PO DAILY #6 tablet 05/14/18 Unknown Rx Ibuprofen [Ibu] 600 mg PO Q6HR PRN #20 tablet 05/14/18 Unknown Rx guaiFENesin/CODEINE [Robitussin AC] 5 ml PO Q6HR PRN #100 oral.liqd 05/14/18 Unknown Rx predniSONE [Deltasone] 20 mg PO QDAY #5 tab 05/14/18 Unknown Rx Allergies Allergy/AdvReac Type Severity Reaction Status Date / Time No Known Allergies Allergy Verified 10/31/21 08:02 ED Review of Systems ROS: Stated complaint: BURN WHEN URINES Other details as noted in HPI Comment: All other systems reviewed and negative Constitutional: denies: chills, fever Respiratory: denies: shortness of breath Cardiovascular: denies: chest pain, palpitations Gastrointestinal: denies: abdominal pain, nausea, vomiting Genitourinary: dysuria, discharge. denies: urgency, frequency, hematuria, testicular pain Musculoskeletal: denies: back pain Skin: denies: rash, lesions Neurological: denies: headache, weakness ED Past Medical Hx - Past Medical History Previous Medical History?: No Additional medical history: STI - Surgical History Past Surgical History?: No - Social History Smoking Status: Current Every Day Smoker Substance Use Type: Alcohol, Marijuana - Medications Home Medications: Home Medications Medication Instructions Recorded Confirmed Last Taken Type Famotidine [Pepcid] 20 mg PO BID #20 tablet 03/29/14 Unknown Rx Promethazine [Phenergan] 25 mg PO Q6H PRN #20 tablet 03/29/14 Unknown Rx Brompheniramine/Pseudoephed/Dm 10 ml PO Q12HR #120 ml 04/04/15 Unknown Rx [Bromfed Dm Cough Syrup] Ibuprofen [Motrin 800 MG tab] 800 mg PO Q8HR PRN #30 tablet 04/04/15 Unknown Rx Acetaminophen/Codeine [Tylenol 1 tab PO Q6H PRN #10 tab 06/14/17 Unknown Rx /Codeine # 3 tab] Amoxicillin/Potassium Clav 1 each PO BID #20 tablet 06/14/17 Unknown Rx [Augmentin 875-125 Tablet] Benzocaine [Orajel Liquid 20%] 1 ml MM Q6HR PRN #1 bottle 06/14/17 Unknown Rx Chlorhexidine Mouthwash [Peridex] 15 ml MM BID PRN #1 bottle 06/14/17 Unknown Rx Ibuprofen [Motrin] 600 mg PO Q8H PRN #20 tablet 06/14/17 Unknown Rx Sulfamethoxazole/Trimethoprim 1 each PO BID #14 tablet 11/30/17 Unknown Rx [Bactrim DS TAB] Ibuprofen [Motrin 800 MG tab] 800 mg PO Q8HR PRN #20 tablet 02/25/18 Unknown Rx traMADoL [Ultram] 50 mg PO Q6HR PRN #10 tablet 02/25/18 Unknown Rx Azithromycin [Zithromax Z-GRAYSON] 250 mg PO DAILY #6 tablet 05/14/18 Unknown Rx Ibuprofen [Ibu] 600 mg PO Q6HR PRN #20 tablet 05/14/18 Unknown Rx guaiFENesin/CODEINE [Robitussin AC] 5 ml PO Q6HR PRN #100 oral.liqd 05/14/18 Unknown Rx predniSONE [Deltasone] 20 mg PO QDAY #5 tab 05/14/18 Unknown Rx ED Physical Exam - General Limitations: No Limitations General appearance: alert, in no apparent distress - Head Head exam: Present: atraumatic, normocephalic - Eye Eye exam: Present: normal appearance. Absent: conjunctival injection - ENT ENT exam: Present: normal exam - Neck Neck exam: Present: normal inspection. Absent: tenderness, lymphadenopathy - Respiratory Respiratory exam: Absent: respiratory distress - Cardiovascular Cardiovascular Exam: Present: regular rate - GI/Abdominal GI/Abdominal exam: Present: soft. Absent: distended, tenderness - exam: Present: normal inspection - Extremities Exam Extremities exam: Present: normal inspection, normal capillary refill - Back Exam Back exam: Present: normal inspection. Absent: CVA tenderness (R), CVA tenderne ss (L) - Neurological Exam Neurological exam: Present: alert, oriented X3, normal gait - Psychiatric Psychiatric exam: Present: normal affect, normal mood - Skin Skin exam: Present: warm, dry, intact, normal color ED Course Vital Signs 10/31/21 08:03 Temperature 98.8 F Pulse Rate 97 H Respiratory 18 Rate Blood Pressure 113/61 O2 Sat by Pulse 97 Oximetry ED Medical Decision Making - Medical Decision Making 26-year-old black male with no past medical history presents to the emergency department for evaluation of 1 day history of penile discharge and burning with urination. He states that he has been having unprotected sex but with the same partner. He states that he is unaware if his partner is having symptoms or not. He denies abdominal pain, fever, nausea, and vomiting. Physical exam unremarkable. Patient treated empirically with Rocephin 500 mg IM and Zithromax 1 g p.o. (patient states that he prefers one-time dose of the medication because he does not think he can complete 7-day course). He is advised to notify partner so that he can be tested and treated and follow-up with his local health department or primary care provider for further evaluation and testing. He is advised to return to the emergency department as needed. He verbalizes understanding of and agreement with plan of care. Critical care attestation.: If time is entered above; I have spent that time in minutes in the direct care of this critically ill patient, excluding procedure time. ED Disposition Clinical Impression: Urethritis Disposition: 01 HOME / SELF CARE / HOMELESS Is pt being admited?: No Does the pt Need Aspirin: No Condition: Stable Additional Instructions: Notify your partner so that they can be tested and treated. Practice safe sex. Follow-up with your primary care provider or local health department for testing and further evaluation and management. Return to the emergency department as needed. Referrals: RANDA JAIN MD [Primary Care Provider] - 3-5 Days [facility] [Outside] - 3-5 Days Forms: STI Treatment and Prevention Time of Disposition: 11:15
[2021-10-31 12:00] VITALS: BP 109/77
== END 2021-10-31 11:59 | disposition home or self-care (01) ==
LOC: ED 07:53
DX: N34.2 Other urethritis (principal); F17.200 Nicotine dependence, unspecified, uncomplicated; F10.20 Alcohol dependence, uncomplicated; F12.90 Cannabis use, unspecified, uncomplicated
CPT/HCPCS: 96372; 99282; J0696; J3490